=== PATIENT | female | born 1960 | race Two or more races ===

== ENCOUNTER 2019-04-02 02:34 | Inpatient (IN) | payer MEDICAID ==
[~2019-04-02] VITALS: Ht 160 cm; Wt 82.1 kg
[2019-04-02 02:38] VITALS: Ht 160 cm; Wt 82.1 kg
[2019-04-02 04:11] LABS: BASOPHIL % 0.4 % (0-2); PLATELET COUNT 335 x10^3mcL (130-400); RED CELL DISTRIBUTION WIDTH 13.9 % (11.5-14.5)
[2019-04-02 04:18] LABS: CALCIUM 9.5 mg/dL (8.5-10.1); CARBON DIOXIDE 26.7 mmol/L (21-32); CREATININE SERUM 1.1 mg/dL (0.6-1.0); POTASSIUM SERUM 3.5 mmol/L (3.5-5.1)
[2019-04-02 04:22] LABS: ALBUMIN 3.5 g/dL (3.4-5.0); BILIRUBIN TOTAL 0.3 mg/dL (0.20-1.00); TOTAL PROTEIN, SERUM 7.2 g/dL (6.4-8.2)
[2019-04-02 04:40] LABS: microscopic required? NO
[2019-04-02 04:45] LABS: UA SPECIFIC GRAVITY <=1.005 (1.005-1.035); urine erythrocyte NEGATIVE (NEGATIVE)
[2019-04-02 07:56] LABS: AMPHETAMINE QUAL UR NONE DETECTED (See below)
[2019-04-02 08:18] LABS: MAGNESIUM 1.7 mg/dL (1.8-2.4); PHOSPHOROUS 4.2 mg/dL (2.5-4.9)
[2019-04-02 08:21] LABS: CHOLESTEROL/HDL RATIO 5.4
[2019-04-02 09:20] VITALS: BP 125/56
[2019-04-02 11:50] VITALS: BP 102/63
[2019-04-02 17:02] VITALS: BP 128/60
[2019-04-02 19:20] VITALS: BP 129/50
[2019-04-03 05:26] VITALS: BP 96/52
[2019-04-03 06:53] LABS: CALCIUM 8.4 mg/dL (8.5-10.1); CARBON DIOXIDE 29.4 mmol/L (21-32); CHLORIDE SERUM 107 mmol/L (98-107); CREATININE SERUM 0.9 mg/dL (0.6-1.0); GFR1 > 60 mL/min; GLUCOSE SERUM 197 mg/dL (74-106); MAGNESIUM 1.6 mg/dL (1.8-2.4); PHOSPHOROUS 3.5 mg/dL (2.5-4.9); POTASSIUM SERUM 4.2 mmol/L (3.5-5.1); SODIUM SERUM 143 mmol/L (136-145)
[2019-04-03 06:56] LABS: BASOPHIL % 0.3 % (0-2); PLATELET COUNT 341 x10^3mcL (130-400); RED CELL DISTRIBUTION WIDTH 13.7 % (11.5-14.5)
[2019-04-03 07:56] VITALS: BP 96/57
[2019-04-03 16:32] VITALS: BP 134/69
[2019-04-03 18:06] VITALS: BP 134/69
== END 2019-04-03 18:31 | disposition home or self-care (01) | DRG 420 ==
LOC: ED 02:34 → DU 06:03 → MU 06:03 → DU 08:10 → MU 04-03 02:04
PROVIDERS: Emergency Medicine; ADMIT Internal Medicine
DX: E11.649 Type 2 diabetes mellitus with hypoglycemia without coma (principal); N17.0 Acute kidney failure with tubular necrosis; R07.89 Other chest pain; E11.65 Type 2 diabetes mellitus with hyperglycemia; E78.5 Hyperlipidemia, unspecified; D64.9 Anemia, unspecified; F17.210 Nicotine dependence, cigarettes, uncomplicated; Z68.29 Body mass index [BMI] 29.0-29.9, adult; Z79.4 Long term (current) use of insulin; Z79.84 Long term (current) use of oral hypoglycemic drugs; Z91.14 Patient's other noncompliance with medication regimen; Z91.11 Patient's noncompliance with dietary regimen
CPT/HCPCS: 82962; 83880; 85378; G0378; J1815; J2405; J3490; J7030; Q0092